=== PATIENT | male | born 1965 | race Caucasian/White ===

== ENCOUNTER 2019-04-02 10:26 | Emergency (ER) | payer BC, OTHER ==
[~2019-04-02] VITALS: Ht 185.4 cm; Wt 62.6 kg
[~2019-04-02 10:26] MED LIST: ALBU90OI6 INH; ALPR1 PO; AMOCLA875 PO; ARIP10 PO; ASCO500 PO; AZIT500 PO; BENZ100A PO; CLON1 PO; CYCL10 PO; Cholestyramine R5 GM PO; Coumadin5 MG MT; Coumadin7.5 MG PO; DIAZ10 PO; DIPATR PO; DULO30 PO; Desyrel50 MG PO; ELIQUIS5 MG PO; ERYT250 PO; ESCI10 MT; ESCI5 PO; FERR325 PO; FLUO10 PO; FLUO20 PO; Flomax0.4 MG PO; GABA300 PO; HALO5 PO; HYDR25SUP PR; IBUP400 PO; LEVSOD175 PO; LEVSOD75 PO; MEGE40SU PO; METH10 PO; METO50ER PO; METPRE4DP PO; METR500 PO; MIRT30ST MM; MORP15ER PO; MORP30 PO; Monodox100 MG PO; Mysoline250 MG PO; NEW ANTIDEPRESSANT; Neurontin 300300 MG PO; Norco 5-325 Ta1 EACH PO; OLAN20; OLANZAPINE5 MG PO; OMEP20ER PO; OMEPRAZOLE MAGN20 MG PO; OXYACE5T PO; OXYC15ER PO; OXYC1TAB11 PO; Omeprazole20 M1 PO; PANT40 PO; PRED20 PO; PROM25 PO; Percocet 7.5-31 EACH PO; Prednisone20 MG PO; Prilosec20 MG PO; Protonix40 MG PO; Prozac20 MG PO; Prozac40 MG PO; SERT50 PO; SIMV10 PO; SUCR1 PO; Sucralfate1 GM PO; Synthroid125 MCG PO; TRAM50 PO; TRAZ100 PO; Ultram50 MG PO; Ventolin/Prove6.7 GM INH; WARF10 PO; WARF6 PO; Zofran4 MG PO; Zoloft50 MG PO
[2019-04-02] MEDS ORDERED: FINA5 PO (10:54)
[2019-04-02] MEDS ORDERED: ALFU10 PO (10:55)
[2019-04-02] MEDS ORDERED: SERT100 PO (10:56)
[2019-04-02] MEDS ORDERED: BUPR150ER PO (10:57)
[2019-04-02] MEDS ORDERED: QUET300 PO (10:57)
[2019-04-02] MEDS ORDERED: TRAZ150T57 PO (10:57)
[2019-04-02 11:45] LABS: BASOPHILS ABSOLUTE AUTO 0.01 K/mm3 (0.00-0.23); BASOPHILS PERCENT AUTO 0 % (0-2); EOSINOPHILS PERCENT AUTO 0 % (0-6); Hematocrit 36.7 % (37.0-53.0); Hemoglobin 12.5 g/dL (13.5-17.5); IMMATURE GRAN PERCENT AUTO 0 % (0-1); LYMPHOCYTES ABSOLUTE AUTO 0.56 K/mm3 (0.84-5.20); LYMPHOCYTES PERCENT AUTO 11 % (21-46); MONOCYTES ABSOLUTE AUTO 0.18 K/mm3 (0.16-1.47); MONOCYTES PERCENT AUTO 4 % (4-13); Mean Corpuscular HGB 31.5 pg (26.0-34.0); Mean Corpuscular HGB Conc 34.1 g/dL (31.5-36.5); Mean Corpuscular Volume 92 fL (80-100); Mean Platelet Volume 9.4 fL (9.1-12.4); NEUTROPHILS ABSOLUTE AUTO 4.37 K/mm3 (1.96-9.15); NEUTROPHILS PERCENT AUTO 85 % (41-73); Platelet Count 170 K/mm3 (150-400); RDW Coefficient Variation 12.7 % (11.7-14.2); RDW Standard Deviation 43.9 fL (35.1-46.3); Red Blood Cell Count 3.97 M/mm3 (4.30-5.90); White Blood Cell Count 5.12 K/mm3 (4.00-11.30)
[2019-04-02 12:08] LABS: Alanine Aminotransfer (ALT/SGP 15 U/L (12-78); Albumin, Blood 4.2 g/dL (3.4-5.0); Albumin/Globulin Ratio 1.7 (0.8-1.8); Alk Phos 51 U/L (50-136); Anion Gap 9 mmol/L (6-16); Aspartate Aminotrans (AST/SGOT 8 U/L (12-37); Bilirubin, Total 0.4 mg/dL (0.1-1.0); Blood Urea Nitrogen 20 mg/dL (8-24); Bun/Creatinine Ratio 20.8 (12.0-20.0); CO2, Blood 21 mmol/L (21-32); Calcium, Blood 8.7 mg/dL (8.5-10.1); Chloride, Blood 111 mmol/L (98-108); Creatinine, Blood 0.96 mg/dL (0.60-1.20); Ethanol (Alcohol), Blood, Med <3 mg/dL; Globulin, Blood 2.5 g/dL (2.2-4.0); Glomerular Filtration Rate >60 (60-); Glucose, Blood 100 mg/dL (70-99); Potassium, Blood 3.6 mmol/L (3.5-5.5); Sodium, Blood 141 mmol/L (136-145); Total Protein, Blood 6.7 g/dL (6.4-8.2)
[2019-04-02] MEDS ORDERED: ONDA4ODT MM (15:16)
== END 2019-04-02 15:33 | disposition home or self-care (01) ==
LOC: ER 10:26
PROVIDERS: Emergency Medicine
DX: G43.809 Other migraine, not intractable, without status migrainosus (principal); R11.0 Nausea; R40.4 Transient alteration of awareness; F32.9 Major depressive disorder, single episode, unspecified; D64.9 Anemia, unspecified; Z79.899 Other long term (current) drug therapy
CPT/HCPCS: 36415; 70450; 80053; 85025; 93005; 93010; 96361; 96374; 96375; 99285-25; G0480; J1630; J1885; J2060; J2765; J7030

== ENCOUNTER → 2019-05-12 | Outpatient (CLI) | payer BC, OTHER ==
[~2019-05-12] MED LIST changes: +ALFU10 PO; +BUPR150ER PO; +FINA5 PO; +HYDR1TAB94 PO; +ONDA4ODT MM; +QUET300 PO; +SERT100 PO; +TRAZ150T57 PO
[2019-05-12 16:00] LABS: U Amphetamine Screen Not Detected; U Barbituate Screen Not Detected; U Benzodiazapine Screen DETECTED; U Buprenorphine Screen Not Detected; U Cannabinoids Screen Not Detected; U Cocaine Screen Not Detected; U Methadone Screen Not Detected; U Methamphetamine Screen Not Detected; U Opiates Screen Not Detected; U Oxycodone Screen Not Detected; U Phencyclidine Screen Not Detected; U Propoxyphene Screen Not Detected
== END ==
LOC: LAB SHORT 14:21 → LAB 14:21
PROVIDERS: Nurse Practitioner Family
DX: Z51.81 Encounter for therapeutic drug level monitoring (principal); Z79.899 Other long term (current) drug therapy

== ENCOUNTER 2019-07-12 16:18 | Emergency (ER) | payer BC, OTHER ==
[~2019-07-12] VITALS: Ht 188 cm; Wt 71.7 kg
[~2019-07-12 16:18] MED LIST changes: -HYDR1TAB94 PO
[2019-07-12] MEDS ORDERED: Prednisone20 MG PO (17:46)
[2019-07-12] MEDS ORDERED: HYDR1TAB94 PO (17:50)
== END 2019-07-12 18:17 | disposition home or self-care (01) ==
LOC: ER 16:18
DX: M25.511 Pain in right shoulder (principal); Z79.899 Other long term (current) drug therapy; F32.9 Major depressive disorder, single episode, unspecified; G20 Parkinson's disease; D64.9 Anemia, unspecified; F17.210 Nicotine dependence, cigarettes, uncomplicated; Z85.46 Personal history of malignant neoplasm of prostate; Z85.038 Personal history of other malignant neoplasm of large intestine
CPT/HCPCS: 73030; 99283-25

== ENCOUNTER 2019-10-01 20:37 | Emergency (ER) | payer OTHER ==
[~2019-10-01] VITALS: Ht 188 cm; Wt 77.1 kg
[~2019-10-01 20:37] MED LIST changes: +HYDR1TAB94 PO
[2019-10-01] MEDS ORDERED: CEPH500 PO (22:14)
== END 2019-10-01 22:30 | disposition home or self-care (01) ==
LOC: ER 20:37
DX: S68.022A Partial traumatic metacarpophalangeal amputation of left thumb, initial encounter (principal); F32.9 Major depressive disorder, single episode, unspecified; F17.210 Nicotine dependence, cigarettes, uncomplicated; Z85.46 Personal history of malignant neoplasm of prostate; Z85.038 Personal history of other malignant neoplasm of large intestine; Z79.899 Other long term (current) drug therapy; Z79.01 Long term (current) use of anticoagulants; W26.0XXA Contact with knife, initial encounter
CPT/HCPCS: 99282; A9270; A9270-GY

== ENCOUNTER 2020-07-22 12:48 | Emergency (ER) | payer OTHER ==
[~2020-07-22] VITALS: Ht 188 cm; Wt 83.9 kg
[~2020-07-22 12:48] MED LIST changes: +CEPH500 PO; +Mirtazapine7.5 MG PO; +PROPRANOLOL HCL80 MG PO
[2020-07-22 13:25] LABS: BASOPHILS ABSOLUTE AUTO 0.04 K/mm3 (0.00-0.23); BASOPHILS PERCENT AUTO 1 % (0-2); EOSINOPHILS ABSOLUTE AUTO 0.05 K/mm3 (0.00-0.68); EOSINOPHILS PERCENT AUTO 1 % (0-6); Hematocrit 42.2 % (37.0-53.0); IMMATURE GRAN ABSOLUTE AUTO 0.03 K/mm3 (0.00-0.10); IMMATURE GRAN PERCENT AUTO 0 % (0-1); LYMPHOCYTES PERCENT AUTO 16 % (21-46); MONOCYTES ABSOLUTE AUTO 0.41 K/mm3 (0.16-1.47); MONOCYTES PERCENT AUTO 6 % (4-13); Mean Corpuscular HGB 30.9 pg (26.0-34.0); Mean Corpuscular HGB Conc 33.2 g/dL (31.5-36.5); Mean Corpuscular Volume 93 fL (80-100); Mean Platelet Volume 9.3 fL (9.1-12.4); NEUTROPHILS ABSOLUTE AUTO 5.35 K/mm3 (1.96-9.15); NEUTROPHILS PERCENT AUTO 77 % (41-73); Platelet Count 260 K/mm3 (150-400); RDW Standard Deviation 48.1 fL (35.1-46.3); Red Blood Cell Count 4.53 M/mm3 (4.30-5.90); White Blood Cell Count 6.98 K/mm3 (4.00-11.30)
[2020-07-22 13:45] LABS: Alanine Aminotransfer (ALT/SGP 21 U/L (12-78); Albumin, Blood 3.9 g/dL (3.4-5.0); Albumin/Globulin Ratio 1.1 (0.8-1.8); Alk Phos 78 U/L (50-136); Anion Gap 6 mmol/L (6-16); Aspartate Aminotrans (AST/SGOT 19 U/L (12-37); Bilirubin, Total 0.3 mg/dL (0.1-1.0); Blood Urea Nitrogen 12 mg/dL (8-24); Bun/Creatinine Ratio 11.3 (12.0-20.0); CO2, Blood 27 mmol/L (21-32); Calcium, Blood 8.9 mg/dL (8.5-10.1); Chloride, Blood 108 mmol/L (98-108); Creatinine, Blood 1.06 mg/dL (0.60-1.20); Globulin, Blood 3.4 g/dL (2.2-4.0); Glomerular Filtration Rate >60 (60-); Glucose, Blood 89 mg/dL (70-99); Sodium, Blood 141 mmol/L (136-145); Total Protein, Blood 7.3 g/dL (6.4-8.2)
[2020-07-22] MEDS ORDERED: Percocet 5-3251 EACH PO (15:13)
== END 2020-07-22 15:42 | disposition home or self-care (01) ==
LOC: ER 12:48
PROVIDERS: Emergency Medicine
DX: S93.402A Sprain of unspecified ligament of left ankle, initial encounter (principal); I82.403 Acute embolism and thrombosis of unspecified deep veins of lower extremity, bilateral; F32.9 Major depressive disorder, single episode, unspecified; Z91.14 Patient's other noncompliance with medication regimen; Z79.01 Long term (current) use of anticoagulants; Z79.899 Other long term (current) drug therapy; V89.2XXA Person injured in unspecified motor-vehicle accident, traffic, initial encounter; Y92.410 Unspecified street and highway as the place of occurrence of the external cause
CPT/HCPCS: 36415; 73610; 80053; 85025; 93005; 93010; 93970; 96374-59; 99284-25; J1170; L1906

== ENCOUNTER 2020-08-27 00:06 | Emergency (ER) | payer OTHER ==
[~2020-08-27] VITALS: Ht 188 cm; Wt 83.5 kg
[~2020-08-27 00:06] MED LIST changes: +Percocet 5-3251 EACH PO
== END 2020-08-27 04:15 | disposition left against medical advice (07) ==
LOC: ER 00:06
DX: Z53.21 Procedure and treatment not carried out due to patient leaving prior to being seen by health care provider (principal)
CPT/HCPCS: 93971

== ENCOUNTER 2020-09-29 15:55 | Emergency (ER) | payer OTHER ==
[~2020-09-29] VITALS: Ht 188 cm; Wt 86.2 kg
[2020-09-29 16:41] LABS: BASOPHILS ABSOLUTE AUTO 0.03 K/mm3 (0.00-0.23); BASOPHILS PERCENT AUTO 1 % (0-2); EOSINOPHILS ABSOLUTE AUTO 0.02 K/mm3 (0.00-0.68); EOSINOPHILS PERCENT AUTO 0 % (0-6); Hematocrit 45.8 % (37.0-53.0); Hemoglobin 15.2 g/dL (13.5-17.5); IMMATURE GRAN ABSOLUTE AUTO 0.01 K/mm3 (0.00-0.10); IMMATURE GRAN PERCENT AUTO 0 % (0-1); LYMPHOCYTES ABSOLUTE AUTO 1.57 K/mm3 (0.84-5.20); LYMPHOCYTES PERCENT AUTO 27 % (21-46); MONOCYTES ABSOLUTE AUTO 0.37 K/mm3 (0.16-1.47); MONOCYTES PERCENT AUTO 6 % (4-13); Mean Corpuscular HGB 30.5 pg (26.0-34.0); Mean Corpuscular HGB Conc 33.2 g/dL (31.5-36.5); Mean Corpuscular Volume 92 fL (80-100); Mean Platelet Volume 9.8 fL (9.1-12.4); NEUTROPHILS PERCENT AUTO 66 % (41-73); Platelet Count 275 K/mm3 (150-400); RDW Coefficient Variation 12.9 % (11.7-14.2); RDW Standard Deviation 43.4 fL (35.1-46.3); Red Blood Cell Count 4.98 M/mm3 (4.30-5.90)
[2020-09-29] MEDS ORDERED: XARELTO20 M1 PO (16:55)
[2020-09-29 16:58] LABS: Prothrombin Time Results 10.7 Sec (9.7-11.5)
[2020-09-29 16:59] LABS: Alanine Aminotransfer (ALT/SGP 18 U/L (12-78); Albumin, Blood 4.3 g/dL (3.4-5.0); Albumin/Globulin Ratio 1.3 (0.8-1.8); Alk Phos 68 U/L (50-136); Anion Gap 4 mmol/L (6-16); Aspartate Aminotrans (AST/SGOT 14 U/L (12-37); Bilirubin, Total 0.7 mg/dL (0.1-1.0); Blood Urea Nitrogen 12 mg/dL (8-24); Bun/Creatinine Ratio 11.9 (12.0-20.0); CO2, Blood 29 mmol/L (21-32); Calcium, Blood 8.8 mg/dL (8.5-10.1); Chloride, Blood 109 mmol/L (98-108); Creatinine, Blood 1.01 mg/dL (0.60-1.20); Globulin, Blood 3.4 g/dL (2.2-4.0); Glomerular Filtration Rate >60 (60-); Glucose, Blood 104 mg/dL (70-99); Potassium, Blood 3.7 mmol/L (3.5-5.5); Sodium, Blood 142 mmol/L (136-145); Total Protein, Blood 7.7 g/dL (6.4-8.2)
== END 2020-09-29 17:49 | disposition home or self-care (01) ==
LOC: ER 15:55
PROVIDERS: Physician Assistant
DX: L76.22 Postprocedural hemorrhage of skin and subcutaneous tissue following other procedure (principal); F32.9 Major depressive disorder, single episode, unspecified; G20 Parkinson's disease; F17.210 Nicotine dependence, cigarettes, uncomplicated; Z79.01 Long term (current) use of anticoagulants; Z79.899 Other long term (current) drug therapy; Y83.8 Other surgical procedures as the cause of abnormal reaction of the patient, or of later complication, without mention of misadventure at the time of the procedure
CPT/HCPCS: 36415; 80053; 85025; 85610; 86850; 86900; 86901; 96374; 96375; 99283-25; J1170; J2405

== ENCOUNTER 2020-12-24 16:16 | Emergency (ER) | payer BC ==
[~2020-12-24] VITALS: Ht 188 cm; Wt 83.9 kg
[~2020-12-24 16:16] MED LIST changes: +XARELTO20 M1 PO
[2020-12-24 18:07] LABS: BASOPHILS ABSOLUTE AUTO 0.05 K/mm3 (0.00-0.23); BASOPHILS PERCENT AUTO 1 % (0-2); EOSINOPHILS ABSOLUTE AUTO 0.03 K/mm3 (0.00-0.68); EOSINOPHILS PERCENT AUTO 0 % (0-6); Hematocrit 43.5 % (37.0-53.0); Hemoglobin 14.6 g/dL (13.5-17.5); IMMATURE GRAN ABSOLUTE AUTO 0.02 K/mm3 (0.00-0.10); IMMATURE GRAN PERCENT AUTO 0 % (0-1); LYMPHOCYTES ABSOLUTE AUTO 1.49 K/mm3 (0.84-5.20); LYMPHOCYTES PERCENT AUTO 19 % (21-46); MONOCYTES ABSOLUTE AUTO 0.41 K/mm3 (0.16-1.47); MONOCYTES PERCENT AUTO 5 % (4-13); Mean Corpuscular HGB 31.1 pg (26.0-34.0); Mean Corpuscular HGB Conc 33.6 g/dL (31.5-36.5); Mean Corpuscular Volume 93 fL (80-100); Mean Platelet Volume 9.2 fL (9.1-12.4); NEUTROPHILS ABSOLUTE AUTO 6.07 K/mm3 (1.96-9.15); NEUTROPHILS PERCENT AUTO 75 % (41-73); Platelet Count 236 K/mm3 (150-400); RDW Standard Deviation 44.4 fL (35.1-46.3); White Blood Cell Count 8.07 K/mm3 (4.00-11.30)
[2020-12-24] MEDS ORDERED: DABI150C PO (18:12)
[2020-12-24 18:28] LABS: International Normalized Ratio 1.08; Prothrombin Time Results 11.5 Sec (9.7-11.5)
[2020-12-24 18:31] LABS: Alanine Aminotransfer (ALT/SGP 21 U/L (12-78); Albumin, Blood 4.3 g/dL (3.4-5.0); Albumin/Globulin Ratio 1.4 (0.8-1.8); Alk Phos 58 U/L (50-136); Anion Gap 5 mmol/L (6-16); Aspartate Aminotrans (AST/SGOT 18 U/L (12-37); Bilirubin, Total 0.4 mg/dL (0.1-1.0); Blood Urea Nitrogen 14 mg/dL (8-24); Bun/Creatinine Ratio 18.3 (12.0-20.0); CO2, Blood 27 mmol/L (21-32); Calcium, Blood 9.3 mg/dL (8.5-10.1); Chloride, Blood 106 mmol/L (98-108); Creatinine, Blood 0.77 mg/dL (0.60-1.20); Globulin, Blood 3.1 g/dL (2.2-4.0); Glomerular Filtration Rate >60 (60-); Glucose, Blood 89 mg/dL (70-99); Potassium, Blood 3.9 mmol/L (3.5-5.5); Sodium, Blood 138 mmol/L (136-145); Total Protein, Blood 7.4 g/dL (6.4-8.2)
== END 2020-12-24 18:31 | disposition home or self-care (01) ==
LOC: ER 16:16
PROVIDERS: Physician Assistant
DX: I82.401 Acute embolism and thrombosis of unspecified deep veins of right lower extremity (principal); F17.210 Nicotine dependence, cigarettes, uncomplicated; Z79.01 Long term (current) use of anticoagulants; Z79.899 Other long term (current) drug therapy
CPT/HCPCS: 36415; 80053; 85025; 85610; 85730; 93971; 99284-25; A9270

== ENCOUNTER 2021-01-17 17:23 | Emergency (ER) | payer BC ==
[~2021-01-17] VITALS: Ht 188 cm; Wt 79.8 kg
[~2021-01-17 17:23] MED LIST changes: +DABI150C PO
[2021-01-17 18:19] LABS: BASOPHILS ABSOLUTE AUTO 0.03 K/mm3 (0.00-0.23); BASOPHILS PERCENT AUTO 1 % (0-2); EOSINOPHILS ABSOLUTE AUTO 0.06 K/mm3 (0.00-0.68); EOSINOPHILS PERCENT AUTO 1 % (0-6); Hemoglobin 13.6 g/dL (13.5-17.5); IMMATURE GRAN ABSOLUTE AUTO 0.02 K/mm3 (0.00-0.10); IMMATURE GRAN PERCENT AUTO 0 % (0-1); LYMPHOCYTES ABSOLUTE AUTO 1.45 K/mm3 (0.84-5.20); LYMPHOCYTES PERCENT AUTO 24 % (21-46); MONOCYTES ABSOLUTE AUTO 0.34 K/mm3 (0.16-1.47); MONOCYTES PERCENT AUTO 6 % (4-13); Mean Corpuscular HGB 31.9 pg (26.0-34.0); Mean Corpuscular Volume 94 fL (80-100); Mean Platelet Volume 9.3 fL (9.1-12.4); NEUTROPHILS ABSOLUTE AUTO 4.14 K/mm3 (1.96-9.15); NEUTROPHILS PERCENT AUTO 69 % (41-73); Platelet Count 226 K/mm3 (150-400); RDW Coefficient Variation 13.2 % (11.7-14.2); RDW Standard Deviation 45.4 fL (35.1-46.3); Red Blood Cell Count 4.26 M/mm3 (4.30-5.90); White Blood Cell Count 6.04 K/mm3 (4.00-11.30)
[2021-01-17 18:47] LABS: Troponin I <0.015 ng/mL (0.000-0.040)
[2021-01-17 18:48] LABS: Alanine Aminotransfer (ALT/SGP 27 U/L (12-78); Albumin, Blood 4.2 g/dL (3.4-5.0); Albumin/Globulin Ratio 1.3 (0.8-1.8); Alk Phos 57 U/L (50-136); Anion Gap 5 mmol/L (6-16); Aspartate Aminotrans (AST/SGOT 28 U/L (12-37); Bilirubin, Total 0.5 mg/dL (0.1-1.0); Blood Urea Nitrogen 15 mg/dL (8-24); Bun/Creatinine Ratio 16.6 (12.0-20.0); CO2, Blood 30 mmol/L (21-32); Calcium, Blood 9.2 mg/dL (8.5-10.1); Chloride, Blood 103 mmol/L (98-108); Globulin, Blood 3.2 g/dL (2.2-4.0); Glomerular Filtration Rate >60 (60-); Glucose, Blood 91 mg/dL (70-99); Potassium, Blood 3.5 mmol/L (3.5-5.5); Sodium, Blood 138 mmol/L (136-145); Total Protein, Blood 7.4 g/dL (6.4-8.2)
[2021-01-17] MEDS ORDERED: ENOX100I SC (19:39)
[2021-01-17] MEDS ORDERED: TRAZ150T57 PO (19:39)
== END 2021-01-17 20:54 | disposition home or self-care (01) ==
LOC: ER 17:23
PROVIDERS: Emergency Medicine
DX: M79.605 Pain in left leg (principal); M79.604 Pain in right leg; D68.51 Activated protein C resistance; Z79.01 Long term (current) use of anticoagulants; Z79.899 Other long term (current) drug therapy
CPT/HCPCS: 36415; 71260; 80053; 83880; 84484; 85025; 93005; 93010; 99284-25; Q9967

== ENCOUNTER 2021-03-09 13:30 | Emergency (ER) | payer BC ==
[~2021-03-09] VITALS: Ht 188 cm; Wt 80.3 kg
[~2021-03-09 13:30] MED LIST changes: +ENOX100I SC
[2021-03-09 15:13] LABS: BASOPHILS ABSOLUTE AUTO 0.04 K/mm3 (0.00-0.23); BASOPHILS PERCENT AUTO 1 % (0-2); EOSINOPHILS ABSOLUTE AUTO 0.06 K/mm3 (0.00-0.68); EOSINOPHILS PERCENT AUTO 1 % (0-6); Hematocrit 43.2 % (37.0-53.0); Hemoglobin 15.1 g/dL (13.5-17.5); IMMATURE GRAN ABSOLUTE AUTO 0.03 K/mm3 (0.00-0.10); IMMATURE GRAN PERCENT AUTO 0 % (0-1); LYMPHOCYTES ABSOLUTE AUTO 1.38 K/mm3 (0.84-5.20); LYMPHOCYTES PERCENT AUTO 19 % (21-46); MONOCYTES ABSOLUTE AUTO 0.52 K/mm3 (0.16-1.47); MONOCYTES PERCENT AUTO 7 % (4-13); Mean Corpuscular HGB 32.1 pg (26.0-34.0); Mean Corpuscular Volume 92 fL (80-100); Mean Platelet Volume 9.5 fL (9.1-12.4); NEUTROPHILS ABSOLUTE AUTO 5.36 K/mm3 (1.96-9.15); NEUTROPHILS PERCENT AUTO 73 % (41-73); Platelet Count 251 K/mm3 (150-400); RDW Coefficient Variation 12.8 % (11.7-14.2); RDW Standard Deviation 42.8 fL (35.1-46.3); White Blood Cell Count 7.39 K/mm3 (4.00-11.30)
[2021-03-09 15:33] LABS: Alanine Aminotransfer (ALT/SGP 21 U/L (12-78); Albumin, Blood 4.1 g/dL (3.4-5.0); Albumin/Globulin Ratio 1.3 (0.8-1.8); Alk Phos 73 U/L (50-136); Anion Gap 5 mmol/L (6-16); Aspartate Aminotrans (AST/SGOT 15 U/L (12-37); Bilirubin, Total 0.6 mg/dL (0.1-1.0); Blood Urea Nitrogen 16 mg/dL (8-24); CO2, Blood 31 mmol/L (21-32); Calcium, Blood 8.9 mg/dL (8.5-10.1); Chloride, Blood 104 mmol/L (98-108); Creatinine, Blood 0.89 mg/dL (0.60-1.20); Globulin, Blood 3.2 g/dL (2.2-4.0); Glomerular Filtration Rate >60 (60-); Glucose, Blood 95 mg/dL (70-99); Potassium, Blood 3.3 mmol/L (3.5-5.5); Sodium, Blood 140 mmol/L (136-145); Total Protein, Blood 7.3 g/dL (6.4-8.2); Troponin I <0.015 ng/mL (0.000-0.040)
[2021-03-09] MEDS ORDERED: CHLO25B PO (19:34)
== END 2021-03-09 20:40 | disposition home or self-care (01) ==
LOC: ER 13:30
PROVIDERS: Physician Assistant
DX: R07.9 Chest pain, unspecified (principal); F17.210 Nicotine dependence, cigarettes, uncomplicated; Z79.899 Other long term (current) drug therapy
CPT/HCPCS: 36415; 71046; 74177; 80053; 84484; 85025; 93005; 93010; 96374-59; 96375; 99284-25; J1885; J2405; Q9967

== ENCOUNTER 2021-12-24 08:44 | Emergency (ER) | payer OTHER ==
[~2021-12-24] VITALS: Ht 188 cm; Wt 81.7 kg
[~2021-12-24 08:44] MED LIST changes: +CHLO25B PO
[2021-12-24] MEDS ORDERED: FAMO20 PO (09:45)
[2021-12-24] MEDS ORDERED: ONDA4ODT MM (09:45)
== END 2021-12-24 11:42 | disposition home or self-care (01) ==
LOC: ER 08:44
DX: U07.1 COVID-19 (principal); F17.210 Nicotine dependence, cigarettes, uncomplicated; Z85.46 Personal history of malignant neoplasm of prostate; Z79.899 Other long term (current) drug therapy
CPT/HCPCS: 96374; 96375; 99283-25; A9270; J1885; J2550; J2765; J7030

== ENCOUNTER → 2022-12-08 | Outpatient (CLI) | payer OTHER ==
[~2022-12-08] MED LIST changes: +FAMO20 PO
== END | disposition home or self-care (01) ==
LOC: LAB SHORT 08:30
DX: R19.7 Diarrhea, unspecified (principal)
CPT/HCPCS: 87015; 87045; 87046; 87205; 87338; 87899

== ENCOUNTER → 2023-01-05 | Outpatient (CLI) | payer OTHER | END | disposition home or self-care (01) | LOC: LAB SHORT 18:06 | DX: R15.9 Full incontinence of feces (principal); R10.9 Unspecified abdominal pain; R19.7 Diarrhea, unspecified | CPT/HCPCS: 87086 ==

== ENCOUNTER → 2023-01-18 | Outpatient (CLI) | payer OTHER | END | disposition home or self-care (01) | LOC: LAB SHORT 18:37 | DX: R41.3 Other amnesia (principal) | CPT/HCPCS: 82607; 82746 ==

== ENCOUNTER → 2023-03-07 | Outpatient (CLI) | payer OTHER ==
[2023-03-07 18:25] LABS: Adenovirus F 40/41 Not Detected (NOT DETECT); Astrovirus Not Detected (NOT DETECT); Campylobacter Sp Not Detected (NOT DETECT); Cryptosporidium Not Detected (NOT DETECT); Cyclospora Cayetanensis Not Detected (NOT DETECT); E. Coli O157 Not Detected (NOT DETECT); Entamoeba Histolytica Not Detected (NOT DETECT); Enteroaggregative E. coli-EAEC Not Detected (NOT DETECT); Enteropathogenic E. coli-EPEC Not Detected (NOT DETECT); Enterotoxigenic E. coli-ETEC Not Detected (NOT DETECT); Giardia Lamblia Not Detected (NOT DETECT); Norovirus GI/GII Not Detected (NOT DETECT); Plesiomonas Shigelloides Not Detected (NOT DETECT); Rotavirus A Not Detected (NOT DETECT); Salmonella Sp Not Detected (NOT DETECT); Sapovirus Not Detected (NOT DETECT); Shiga Toxin-prod E. coli-STEC Not Detected (NOT DETECT); Shigella/Enteroin E. coli-EIEC Not Detected (NOT DETECT); Vibrio Cholerae Not Detected (NOT DETECT); Vibrio Sp Not Detected (NOT DETECT); Yersinia Enterocolitica Not Detected (NOT DETECT)
== END | disposition home or self-care (01) ==
LOC: LAB 15:35 → LAB SHORT 15:35
PROVIDERS: Family Medicine
DX: R19.7 Diarrhea, unspecified (principal); B96.81 Helicobacter pylori [H. pylori] as the cause of diseases classified elsewhere; Z86.19 Personal history of other infectious and parasitic diseases
CPT/HCPCS: 87338; 87507

== ENCOUNTER → 2024-07-11 | Outpatient (CLI) | payer OTHER ==
[2024-07-11 11:07] LABS: BASOPHILS ABSOLUTE AUTO 0.03 K/mm3 (0.00-0.23); BASOPHILS PERCENT AUTO 1 % (0-2); EOSINOPHILS ABSOLUTE AUTO 0.06 K/mm3 (0.00-0.68); EOSINOPHILS PERCENT AUTO 1 % (0-6); Hematocrit 42.1 % (37.0-53.0); Hemoglobin 14.7 g/dL (13.5-17.5); IMMATURE GRAN ABSOLUTE AUTO 0.05 K/mm3 (0.00-0.10); IMMATURE GRAN PERCENT AUTO 1 % (0-1); LYMPHOCYTES ABSOLUTE AUTO 1.41 K/mm3 (0.84-5.20); LYMPHOCYTES PERCENT AUTO 22 % (21-46); MONOCYTES ABSOLUTE AUTO 0.42 K/mm3 (0.16-1.47); MONOCYTES PERCENT AUTO 7 % (4-13); Mean Corpuscular HGB 32.5 pg (26.0-34.0); Mean Corpuscular HGB Conc 34.9 g/dL (31.5-36.5); Mean Corpuscular Volume 93 fL (80-100); Mean Platelet Volume 9.5 fL (9.1-12.4); NEUTROPHILS ABSOLUTE AUTO 4.43 K/mm3 (1.96-9.15); NEUTROPHILS PERCENT AUTO 69 % (41-73); Platelet Count 230 K/mm3 (150-400); RDW Coefficient Variation 13.3 % (11.7-14.2); RDW Standard Deviation 45.6 fL (35.1-46.3); Red Blood Cell Count 4.53 M/mm3 (4.30-5.90)
[2024-07-11 11:22] LABS: Albumin, Blood 4.4 g/dL (3.4-5.0); Albumin/Globulin Ratio 1.2 (0.8-1.8); Bilirubin, Total 0.4 mg/dL (0.1-1.0); Bun/Creatinine Ratio 13.4 (12.0-20.0); Creatinine, Blood 0.82 mg/dL (0.60-1.20); Globulin, Blood 3.6 g/dL (2.2-4.0); Potassium, Blood 3.8 mmol/L (3.5-5.5)
== END ==
LOC: LAB SHORT 11:02 → LAB 11:02
PROVIDERS: Physician Assistant
DX: R07.89 Other chest pain (principal)
CPT/HCPCS: 80053; 84484; 85025

== ENCOUNTER 2025-02-19 05:24 | Emergency (ER) | payer BC, OTHER ==
[~2025-02-19] VITALS: Ht 188 cm; Wt 80.7 kg
[2025-02-19] MEDS ORDERED: Ondansetron HCl 2 MG / ML 2ML Vial IV ONE (06:20)
[2025-02-19] MEDS ORDERED: Morphine Sulfate 4 MG/1 ML Injection IV ONE ×2 (06:20→07:20)
[2025-02-19 06:40] LABS: BASOPHILS ABSOLUTE AUTO 0.01 K/mm3 (0.00-0.23); BASOPHILS PERCENT AUTO 0 % (0-2); EOSINOPHILS PERCENT AUTO 0 % (0-6); Hematocrit 40.3 % (37.0-53.0); Hemoglobin 14.6 g/dL (13.5-17.5); IMMATURE GRAN ABSOLUTE AUTO 0.04 K/mm3 (0.00-0.10); IMMATURE GRAN PERCENT AUTO 1 % (0-1); LYMPHOCYTES ABSOLUTE AUTO 1.13 K/mm3 (0.84-5.20); LYMPHOCYTES PERCENT AUTO 14 % (21-46); MONOCYTES ABSOLUTE AUTO 0.62 K/mm3 (0.16-1.47); MONOCYTES PERCENT AUTO 7 % (4-13); Mean Corpuscular HGB 33.5 pg (26.0-34.0); Mean Corpuscular HGB Conc 36.2 g/dL (31.5-36.5); Mean Corpuscular Volume 92 fL (80-100); Mean Platelet Volume 8.9 fL (9.1-12.4); NEUTROPHILS ABSOLUTE AUTO 6.59 K/mm3 (1.96-9.15); NEUTROPHILS PERCENT AUTO 79 % (41-73); Platelet Count 240 K/mm3 (150-400); RDW Coefficient Variation 12.6 % (11.7-14.2); RDW Standard Deviation 43.3 fL (35.1-46.3); Red Blood Cell Count 4.36 M/mm3 (4.30-5.90); White Blood Cell Count 8.39 K/mm3 (4.00-11.30)
[2025-02-19 06:48] LABS: Bun/Creatinine Ratio 26.2 (12.0-20.0); Calcium, Blood 9.5 mg/dL (8.5-10.1); Creatinine, Blood 0.72 mg/dL (0.60-1.20); International Normalized Ratio 0.96; Magnesium, Blood 2.1 mg/dL (1.6-2.4); Potassium, Blood 3.9 mmol/L (3.5-5.5); Prothrombin Time Results 10.3 Sec (9.7-11.5)
[2025-02-19] MEDS ORDERED: Acetaminophen 500 MG Tab PO ONE (07:20)
[2025-02-19] MEDS ORDERED: Lidocaine 4% 1 Patch TOP ONE (07:20)
[2025-02-19 07:40] VITALS: BP 171/96
== END 2025-02-19 09:03 | disposition left against medical advice (07) ==
LOC: ER 05:24
PROVIDERS: Emergency Medicine
DX: I82.811 Embolism and thrombosis of superficial veins of right lower extremity (principal); R07.9 Chest pain, unspecified; F17.210 Nicotine dependence, cigarettes, uncomplicated; Z86.73 Personal history of transient ischemic attack (TIA), and cerebral infarction without residual deficits; Z79.899 Other long term (current) drug therapy
CPT/HCPCS: 71045; 71260; 80048; 83735; 83880; 84484; 85025; 85610; 85730; 93005; 93010; 93971; 96374-59; 96375-59; 96376-59; 99284-25; A9270; J2270; J2405; Q9967

== ENCOUNTER 2025-03-19 05:27 | Day surgery (SDC) | payer BC, OTHER ==
[2025-03-19] VITALS (8 sets, daily range): BP systolic 139–158; BP diastolic 71–92
[~2025-03-19] VITALS: Ht 188 cm; Wt 85.6 kg
[~2025-03-19 05:27] MED LIST changes: +AMLODIPINE BESY10 MG PO; +CARV25 PO; +ELIQUIS5 M2 PO; +LOSA50 PO; +NITR.4SL SL
[2025-03-19] MEDS ORDERED: OXYCONTIN PO (07:02)
[2025-03-19] MEDS ORDERED: NS 250 ML IV ONE (07:06)
[2025-03-19] MEDS ORDERED: Verapamil HCL 2.5 MG/ML 2ML Injection ONE (07:06)
[2025-03-19] MEDS ORDERED: NS 1,000 ML IV ONE ×2 (07:06→07:15)
[2025-03-19] MEDS ORDERED: Heparin Sodium 1000 Units/ML 10ML MDV ONE ×2 (07:06→08:21)
[2025-03-19] MEDS ORDERED: Nitroglycerin 2 MG/20 ML BTL ONE (07:07)
[2025-03-19] MEDS ORDERED: Midazolam HCl 1MG / ML 2ML Vial ONE ×2 (07:15→08:30)
[2025-03-19] MEDS ORDERED: FentaNYL Citrate 50 MCG/ML 2 ML Injection ONE (07:15)
[2025-03-19 07:37] LABS: BASOPHILS ABSOLUTE AUTO 0.02 K/mm3 (0.00-0.23); BASOPHILS PERCENT AUTO 0 % (0-2); EOSINOPHILS ABSOLUTE AUTO 0.08 K/mm3 (0.00-0.68); EOSINOPHILS PERCENT AUTO 1 % (0-6); Hematocrit 39.1 % (37.0-53.0); Hemoglobin 13.9 g/dL (13.5-17.5); IMMATURE GRAN ABSOLUTE AUTO 0.01 K/mm3 (0.00-0.10); IMMATURE GRAN PERCENT AUTO 0 % (0-1); LYMPHOCYTES ABSOLUTE AUTO 0.88 K/mm3 (0.84-5.20); LYMPHOCYTES PERCENT AUTO 16 % (21-46); MONOCYTES ABSOLUTE AUTO 0.43 K/mm3 (0.16-1.47); MONOCYTES PERCENT AUTO 8 % (4-13); Mean Corpuscular HGB 33.3 pg (26.0-34.0); Mean Corpuscular HGB Conc 35.5 g/dL (31.5-36.5); Mean Corpuscular Volume 94 fL (80-100); Mean Platelet Volume 8.6 fL (9.1-12.4); NEUTROPHILS ABSOLUTE AUTO 4.14 K/mm3 (1.96-9.15); NEUTROPHILS PERCENT AUTO 75 % (41-73); Platelet Count 191 K/mm3 (150-400); RDW Coefficient Variation 12.6 % (11.7-14.2); RDW Standard Deviation 43.5 fL (35.1-46.3); Red Blood Cell Count 4.18 M/mm3 (4.30-5.90); White Blood Cell Count 5.56 K/mm3 (4.00-11.30)
[2025-03-19 07:54] LABS: International Normalized Ratio 0.92; Prothrombin Time Results 9.9 Sec (9.7-11.5)
[2025-03-19 07:59] LABS: Bun/Creatinine Ratio 14.5 (12.0-20.0); Calcium, Blood 9.2 mg/dL (8.5-10.1); Creatinine, Blood 0.83 mg/dL (0.60-1.20); Potassium, Blood 3.1 mmol/L (3.5-5.5)
[2025-03-19] MEDS ORDERED: Aspirin 325 MG Tab ONE (08:20)
[2025-03-19] MEDS ORDERED: Clopidogrel Bisulfate 300 MG TABLET ONE ×2 (08:20→08:21)
[2025-03-19] MEDS ORDERED: NS 0 ML IV ONE (08:57)
[2025-03-19] MEDS ORDERED: OxyCODONE 5 mg/Acetamin 325 mg TABLET PO ONE (09:10)
--- NOTE | 2025-03-19 09:43 | NUR ---
ARRIVED FROM PROCEDURE, TR TO RIGHT RADIAL, CARLOS EDUARDO TO RIGHT AC, INTACT, OLD BLOOD, DRIED. PAINFUL TO RIGHT UPPER ARM, RADIAL SITE SOFT AND INTACT, NO ACUTE CONCERNS, GIVEN PERCOCET EARLIER, MUCH MORE COMFORTABLE AT PRESENT AND RESTING, GIVEN BREAKFAST AND COFFEE, PULSES INTACT, AND DENIES ADDITIONAL CONCERNS, DISCHARGE PENDING. CALLED PRESCRIPTIONS IN TO [facility], EKG ALSO IN PROGRESS.
[2025-03-19] MEDS ORDERED: Aspir 8181 MG PO (10:05)
[2025-03-19] MEDS ORDERED: CLOP75 PO (10:05)
[2025-03-19] MEDS ORDERED: ROSUVASTATIN CA20 MG PO (10:06)
--- NOTE | 2025-03-19 11:00 | NUR ---
CALLED PHARMACY E[facility], ADDED TO D/C MED LIST NEW MEDICATIONS, GIVEN RADIAL SITE CARE INSTRUCTIONS, ALSO REVIEWED F/U APPT, STENT CARD, DISCUSSED QUESTIONS, EKG PERFORMED, SITE REMAINS INTACT. VSS OTHERWISE, D/C PENDING, ALLOWING EXTRA TIME FOR STENT/HEPARIN DOSE. PATIENT GIVEN COPIES OF D/C INSTRUCTIONS, MED LIST, AND RADIAL SITE CARE.
--- NOTE | 2025-03-19 12:34 | NUR ---
TEACHING PERFORMED EARLIER AND REITERATED WITH ON ARRIVAL; UPON TR REMOVAL, SMALL HEMATOMA FORMING NOTED, PLACED TR BAND BACK TO RIGHT RADIAL SITE AND AFTER 30 MINUTES DECREASED AIR AND LATER REMOVED, APPEARS IMROVED AND INTACT, REMOVED TR BAND AT PRESENT AND CLOTH DOT PLACED OVER PUNCTURE SITE. IV REMOVED, WHEELCHAIR BROUGHT, BELONGINGS RETURNED, PATIENT DRESSED. LEFT AT 1242, ACCOMPAINED BY , DECLINED WHEELCHAIR, REINFORCED TO CALL/RETURN IF ANY ISSUES OR GO TO LOCAL HOSPITAL.
== END 2025-03-19 13:04 | disposition home or self-care (01) ==
LOC: MHTC 05:27
PROVIDERS: Student in an Organized Health Care Education/Training Program
DX: R07.89 Other chest pain (principal); I47.10 Supraventricular tachycardia, unspecified; R00.2 Palpitations; I35.1 Nonrheumatic aortic (valve) insufficiency; R06.02 Shortness of breath; D68.51 Activated protein C resistance; G89.4 Chronic pain syndrome; F31.9 Bipolar disorder, unspecified; K21.9 Gastro-esophageal reflux disease without esophagitis; E78.5 Hyperlipidemia, unspecified; Z79.01 Long term (current) use of anticoagulants; Z79.899 Other long term (current) drug therapy; Z88.8 Allergy status to other drugs, medicaments and biological substances; F17.210 Nicotine dependence, cigarettes, uncomplicated
CPT/HCPCS: 76937; 80048; 85025; 85347; 85610; 93005; 93010; 93456; 99152; 99153; A9270; C1725; C1769; C1874; C1887; C1894; C9600; J1644; J2250; J3010; J7030; J7040; J7050; Q9967

== ENCOUNTER 2025-03-22 06:51 | Observation (INO) | payer BC, OTHER ==
[~2025-03-22] VITALS: Ht 188 cm; Wt 80.9 kg
[~2025-03-22 06:51] MED LIST changes: +Aspir 8181 MG PO; +CLOP75 PO; +OXYCONTIN PO; +ROSUVASTATIN CA20 MG PO
[2025-03-22 08:02] LABS: BASOPHILS ABSOLUTE AUTO 0.03 K/mm3 (0.00-0.23); BASOPHILS PERCENT AUTO 1 % (0-2); EOSINOPHILS ABSOLUTE AUTO 0.14 K/mm3 (0.00-0.68); EOSINOPHILS PERCENT AUTO 2 % (0-6); Hematocrit 39.3 % (37.0-53.0); Hemoglobin 14.1 g/dL (13.5-17.5); IMMATURE GRAN ABSOLUTE AUTO 0.01 K/mm3 (0.00-0.10); IMMATURE GRAN PERCENT AUTO 0 % (0-1); LYMPHOCYTES ABSOLUTE AUTO 1.39 K/mm3 (0.84-5.20); LYMPHOCYTES PERCENT AUTO 24 % (21-46); MONOCYTES ABSOLUTE AUTO 0.52 K/mm3 (0.16-1.47); MONOCYTES PERCENT AUTO 9 % (4-13); Mean Corpuscular HGB 32.7 pg (26.0-34.0); Mean Corpuscular HGB Conc 35.9 g/dL (31.5-36.5); Mean Corpuscular Volume 91 fL (80-100); Mean Platelet Volume 8.8 fL (9.1-12.4); NEUTROPHILS ABSOLUTE AUTO 3.65 K/mm3 (1.96-9.15); NEUTROPHILS PERCENT AUTO 64 % (41-73); Platelet Count 207 K/mm3 (150-400); RDW Coefficient Variation 12.4 % (11.7-14.2); RDW Standard Deviation 41.1 fL (35.1-46.3); Red Blood Cell Count 4.31 M/mm3 (4.30-5.90); White Blood Cell Count 5.74 K/mm3 (4.00-11.30)
[2025-03-22 08:15] LABS: Albumin/Globulin Ratio 1.2 (0.8-1.8); Bilirubin, Total 0.5 mg/dL (0.1-1.0); Bun/Creatinine Ratio 23.5 (12.0-20.0); Calcium, Blood 9.2 mg/dL (8.5-10.1); Creatinine, Blood 0.68 mg/dL (0.60-1.20); Globulin, Blood 3.2 g/dL (2.2-4.0); Potassium, Blood 3.6 mmol/L (3.5-5.5); Total Protein, Blood 7.2 g/dL (6.4-8.2)
[2025-03-22] MEDS ORDERED: Aspirin 325 MG Tab PO ONE (08:45)
[2025-03-22] MEDS ORDERED: Nitroglycerin 0.4 MG SUBL SL PRN (08:55)
[2025-03-22] MEDS ORDERED: Morphine Sulfate 4 MG/1 ML Injection IV PRN (10:25)
[2025-03-22] MEDS ORDERED: Isosorbide Mononitrate 30 MG TABCR PO SCH (11:00)
[2025-03-22 12:22] VITALS: BP 159/95
[2025-03-22] MEDS ORDERED: OXAYDO5 M2 PO (12:31)
[2025-03-22] MEDS ORDERED: PERCOCET 10-321 EA13 PO (12:34)
[2025-03-22] MEDS ORDERED: SILD50TA PO (12:37)
--- NOTE | 2025-03-22 13:46 | NUR ---
ER ADMIT. ALERT AND ORIENTED X4, CALLS APPROPRIATELY. 06/28 CHEST PAIN. TREATED PER EMAR. INDEPENDENT IN THE ROOM
--- NOTE | 2025-03-22 15:45 | NUR ---
DR. SORENSEN AT BEDSIDE. PER MD, PLAN TO TREAT SYMPTOMS WITH MEDICATION. NO PROCEDURE PLANNED AT THIS TIME. OK TO GIVE PT A DIET.
[2025-03-22] MEDS ORDERED: Nitroglycerin 0.4 MG SUBL PO PRN (15:55)
[2025-03-22] MEDS ORDERED: Gabapentin 300 MG Cap PO SCH (17:00)
[2025-03-22] MEDS ORDERED: Carvedilol 25 MG Tab PO SCH (17:00)
[2025-03-22 19:11] VITALS: BP 113/72
[2025-03-22] MEDS ORDERED: Apixaban 5 MG Tab PO SCH (21:00)
[2025-03-22] MEDS ORDERED: Rosuvastatin Calcium 10 MG Tab PO SCH (21:00)
[2025-03-22 23:46] VITALS: BP 115/74
[2025-03-23] VITALS (12 sets, daily range): BP systolic 146–173; BP diastolic 84–113
--- NOTE | 2025-03-23 05:26 | NUR ---
EXTRACT MIXER SUMMARY: PT A&O X4. MAKES NEEDS KNOWN. C/O PECTORAL PAIN AND MEDICATED PER EMAR; EFFECTIVE. TELE IN PLACE. NO ACUTE EVENTS T/O SHIFT. VSS. PT ANXIOUS TO D/C TODAY. BED IN LOWEST POSITION. CALL LIGHT IN REACH. CARES ONGOING ORDERED.
[2025-03-23 05:30] LABS: BASOPHILS ABSOLUTE AUTO 0.05 K/mm3 (0.00-0.23); BASOPHILS PERCENT AUTO 1 % (0-2); EOSINOPHILS ABSOLUTE AUTO 0.14 K/mm3 (0.00-0.68); EOSINOPHILS PERCENT AUTO 2 % (0-6); Hematocrit 37.8 % (37.0-53.0); Hemoglobin 13.1 g/dL (13.5-17.5); IMMATURE GRAN ABSOLUTE AUTO 0.02 K/mm3 (0.00-0.10); IMMATURE GRAN PERCENT AUTO 0 % (0-1); LYMPHOCYTES ABSOLUTE AUTO 1.37 K/mm3 (0.84-5.20); LYMPHOCYTES PERCENT AUTO 22 % (21-46); MONOCYTES ABSOLUTE AUTO 0.56 K/mm3 (0.16-1.47); MONOCYTES PERCENT AUTO 9 % (4-13); Mean Corpuscular HGB 32.8 pg (26.0-34.0); Mean Corpuscular HGB Conc 34.7 g/dL (31.5-36.5); Mean Corpuscular Volume 95 fL (80-100); Mean Platelet Volume 9.2 fL (9.1-12.4); NEUTROPHILS ABSOLUTE AUTO 4.05 K/mm3 (1.96-9.15); NEUTROPHILS PERCENT AUTO 66 % (41-73); Platelet Count 178 K/mm3 (150-400); RDW Coefficient Variation 12.6 % (11.7-14.2); RDW Standard Deviation 43.8 fL (35.1-46.3); White Blood Cell Count 6.19 K/mm3 (4.00-11.30)
[2025-03-23 05:52] LABS: Calcium, Blood 9.3 mg/dL (8.5-10.1); Creatinine, Blood 0.68 mg/dL (0.60-1.20); Potassium, Blood 3.4 mmol/L (3.5-5.5)
--- NOTE | 2025-03-23 08:35 | NUR ---
Pt resting in bed awake, a/ox4, pleasant and cooperative with care, follows commands well, reports pain 7/10 in left chest, medication administered, with good relief, lungs are clear t/o, resp even and unlabored, no cough noted or reported, hrr, no edema noted, ppp+2, cap refill<3 sec, vs stable, afebrile, piv to lac site is clear and patent, btx4, abd flat soft nontender, voids without diff, skin c/w/d, maew, perala, call light in reach. will keep npo as pt may have angio.
[2025-03-23] MEDS ORDERED: Isosorbide Mononitrate 60 MG TABCR PO SCH (09:00)
[2025-03-23] MEDS ORDERED: Losartan Potassium 50 MG Tab PO SCH (09:00)
[2025-03-23] MEDS ORDERED: AmLODIPine Besylate 5 MG Tab PO SCH (09:00)
[2025-03-23] MEDS ORDERED: HydroCHLOROthiazide 25 mg Tab PO SCH (09:00)
[2025-03-23] MEDS ORDERED: Enoxaparin 40 MG/0.4 ML SYR SC SCH (09:00)
[2025-03-23] MEDS ORDERED: Aspirin 81 MG Chew PO SCH (09:00)
[2025-03-23] MEDS ORDERED: Clopidogrel Bisulfate 75 MG Tab PO SCH (09:00)
[2025-03-23] MEDS ORDERED: Potassium Chloride 20 MEQ TabCR PO ONE (10:05)
[2025-03-23] MEDS ORDERED: HydrALAZINE HCl 20 MG / ML 1ML Vial IV PRN (15:05)
[2025-03-23] MEDS ORDERED: Verapamil HCL 2.5 MG/ML 2ML Injection ONE (15:50)
[2025-03-23] MEDS ORDERED: NS 1,000 ML IV ONE ×2 (15:51→15:54)
[2025-03-23] MEDS ORDERED: Heparin Sodium 1000 Units/ML 10ML MDV ONE (15:51)
[2025-03-23] MEDS ORDERED: NS 250 ML IV ONE (15:51)
[2025-03-23] MEDS ORDERED: Nitroglycerin 2 MG/20 ML BTL ONE (15:51)
[2025-03-23] MEDS ORDERED: FentaNYL Citrate 50 MCG/ML 2 ML Injection ONE (15:53)
[2025-03-23] MEDS ORDERED: Midazolam HCl 1MG / ML 2ML Vial ONE (15:54)
--- NOTE | 2025-03-23 16:30 | NUR ---
Pt left for clinical laboratory aide via wheelchair. s.o. in attendence.
[2025-03-23] MEDS ORDERED: Imdur-ER60 MG PO (17:27)
--- NOTE | 2025-03-23 18:01 | NUR ---
TRANSFER F/HEART CENTER: PT ARRIVES FROM HEART CENTER AT APPROX 1700 VIA W/C AND TRANSFERS SELF TO BED W/MINIMAL ASSISTANCE. PT IS A&Ox4, ANSWERS QUESTIONS APPROPRIATELY, IS COOPERATIVE W/CARE. PT DENIES SOB, O2 SATS >95% ON RA. PT ALSO DENIES CP, SR ON MONITOR, RATE 60s, RECOVERY VS MONITORING IN PROGRESS. TR BAND TO R RADIAL SITE, DEFLATION TO BEGIN SHORTLY, PT STATES DESIRE TO GO HOME TONIGHT, PROVIDER AWARE, PT INFORMED THAT DC HOME MIGHT BE A POSSIBILITY THIS EVENING DEPENDING ON HOW RADIAL SITE RECOVERY GOES, V/U.
--- NOTE | 2025-03-23 21:29 | NUR ---
ASSUMPTION OF CARE ASSUMED PT'S CARE AT 1900,PT SITTING UP IN BED.BEDSIDE REPORT COMPLETED WITH DAYSDEFT NURSE.WENT OVER THE PLAN OF CARE WITH PT.PT STATES THAT HE IS READY TO GO HOME.INFORMED PT ABOUT THE PROTOCOL FOR TR BAND RECOVERY.TR BAND WITH 6ML OF AIR ACCORDING TO RECORDS.INFORMED PT THAT THERE IS STILL THREE MORE ROUNDS OF AIR REMOVAL :2ML EVERY 15 MINUTES,THEN 1HR OBSERVATION WITH TR BAND ON AFTER THE THE LAST AMOUNT OF AIR IS REMOVED.NOTED THAT PT'S BP ELEVATED SBP IN THE 170'S,DBP IN TH 100'S.PT STATES THAT HIS BP IS ALWAYS HIGH AND THAT HE HAS A TON OF BP MEDS THAT HE TAKES.PT STATES THAT THE LAST TIME HE HAD THE SAME PROCEDURE HE WAS NOT KEPT LONG IN THE HOSPITAL.PT'S SIGNIFICANT OTHER ARRIVED IN THE ROOM AND CALMED PT DOWN BECAUSE HE WAS BEGINNING TO GET AGITATED.THE CHARGE NURSE CALLED INTO THE ROOM. THE CHARGE NURSE SPOKE TO PT AND HE AGREED TO STAY.CALL LIGHT AND PT'S ITEMS WITHIN REACH,SAFETY MEASURES IN PLACE.PT DENIES FURTHER NEEDS AT THIS TIME.
--- NOTE | 2025-03-23 21:55 | NUR ---
CARE NOTE PT REFUSED SCHEDULED HS MEDS.STATES HE WILL TAKE HIS HOE MEDS WHEN HE GETS HOME.
== END 2025-03-23 20:57 | disposition home or self-care (01) ==
LOC: ER 06:51 → MEDS 06:52 → PCU 03-23 16:28
PROVIDERS: Student in an Organized Health Care Education/Training Program; ADMIT Internal Medicine
DX: I25.118 Atherosclerotic heart disease of native coronary artery with other forms of angina pectoris (principal); I10 Essential (primary) hypertension; I74.9 Embolism and thrombosis of unspecified artery; E03.9 Hypothyroidism, unspecified; D68.51 Activated protein C resistance; F31.9 Bipolar disorder, unspecified; N40.0 Benign prostatic hyperplasia without lower urinary tract symptoms; G20.A1 Parkinson's disease without dyskinesia, without mention of fluctuations; Z86.73 Personal history of transient ischemic attack (TIA), and cerebral infarction without residual deficits; Z79.01 Long term (current) use of anticoagulants; Z79.899 Other long term (current) drug therapy; Z79.82 Long term (current) use of aspirin; Z95.5 Presence of coronary angioplasty implant and graft; Z88.8 Allergy status to other drugs, medicaments and biological substances
CPT/HCPCS: 36415; 71045; 76937; 80048; 80053; 83880; 84484; 85025; 85651; 86140; 93005; 93010; 93306; 93454; 96374; 96376; 99152; 99153; 99285-25; A9270; C1769; C1887; C1894; G0378; J1644; J2250; J2270; J3010; J7030; J7050; Q9967